=== PATIENT | male | born 1990 | race Caucasian/White ===

== ENCOUNTER 2024-09-30 19:11 | Emergency (ER) | payer SELFPAY ==
[~2024-09-30] VITALS: Ht 185.4 cm; Wt 117.9 kg
[~2024-09-30 19:11] MED LIST: AUGMENTIN 875 M1 TAB PO; NKHM; ZITHROMAX Z PA250 MG PO
[2024-09-30 20:16] LABS: BASO # 0.1 10*3/uL (0.0-0.1); BASO % 1.4 % (0.0-1.0); EOS # 0.4 10*3/uL (0.0-0.4); EOS % 5.9 % (1.0-4.0); HEMATOCRIT 51.9 % (42.0-52.0); MEAN CELL VOLUME 83.4 fl (80.0-94.0); MEAN CORPUSCULAR HGB 28.3 pg (27.0-31.0); MEAN CORPUSCULAR HGB CONC 33.9 g/dl (33.0-37.0); MEAN PLATELET VOLUME 8.9 fl (9.6-12.3); MONO # 0.8 10*3/uL (0.1-1.0); MONO % 12.5 % (3.0-9.0); NEUT # 3.9 10*3/uL (2.3-7.9); NEUT % 58.7 % (47.0-73.0); PLATELET COUNT AUTOMATED 341 10*3/uL (130-400); RED BLOOD COUNT 6.22 10*6/uL (4.50-5.90); RED CELL DISTRI WIDTH 12.8 % (0-14.5); WHITE BLOOD COUNT 6.6 10*3/uL (4.8-10.8)
[2024-09-30 20:45] LABS: BUN 10 mg/dl (9-23); CHLORIDE 102 mmol/L (98-107); POTASSIUM 3.9 mmol/L (3.4-5.1)
[2024-09-30] MEDS ORDERED: LORazepam 1 MG TAB PO ONE (21:00)
[2024-09-30 21:10] LABS: BILIRUBIN Negative (Negative); BLOOD Negative (Negative); CLARITY Clear (Clear); COLOR Yellow (Yellow); GLUCOSE Negative (Negative); KETONE Negative (Negative); LEUKO ESTERASE Negative (Negative); NITRITE Negative (Negative); PH 7.5 (4.5-8.0); UROBILINOGEN 0.2 E.U./dl (0.0-1.0)
[2024-09-30 22:08] LABS: WBC 0-2 wbc/hpf (0-5)
== END 2024-09-30 22:12 | disposition home or self-care (01) ==
LOC: ED 19:11
PROVIDERS: Nurse Practitioner Family
DX: R20.2 Paresthesia of skin (principal); M79.641 Pain in right hand; M79.642 Pain in left hand; R79.89 Other specified abnormal findings of blood chemistry; Z88.8 Allergy status to other drugs, medicaments and biological substances